=== PATIENT | female | born 1965 | race Caucasian/White ===

== ENCOUNTER → 2023-01-23 09:29 | Outpatient (CLI) | payer OTHER, SELFPAY ==
--- NOTE | 2023-01-23 | DI.US.S_ITS ---
PROCEDURE: US INJECT OR DRAIN JOINT INDICATIONS: RIGHT SHOULDER FLUID COLLECTION TECHNIQUE: The indications, alternatives, benefits, risks, and complications of the procedure were explained to the patient. Written informed consent was obtained and placed in the chart. The patient was placed in an appropriate position on the fluoroscopy table, and a site was chosen for percutaneous access under ultrasound guidance. Local anesthetic was administered using a 1% lidocaine solution. A hypodermic needle was then used to access the fluid collection adjacent to the right shoulder joint. Appropriate position of the needle tip was confirmed by real time ultrasound imaging, followed by aspiration. The needle was then withdrawn, and a bandage applied to the puncture site. COMPARISON: None. FINDINGS: Joint aspirated: Right shoulder Fluid collected: 15 cc of serosanguineous fluid Complications: None. IMPRESSION: Successful ultrasound guided aspiration of a fluid collection adjacent to the right shoulder. Dictated by: George Vargas M.D. on 01/23/2023 at 12:59 Approved by: George Vargas M.D. on 01/23/2023 at 13:01
--- NOTE | 2023-01-23 | DI.CT.S_ITS ---
PROCEDURE: CT UE RT WO CON INDICATIONS: Presence of right artificial shoulder joint TECHNIQUE: Noncontrast 1-1.5 mm thick sections acquired from the acromioclavicular joint to the inferior scapula, with coronal and sagittal reformatting. COMPARISON: [facility], CR, XR SHOULDER 2+ VIEWS RIGHT, 12/21/2022, 11:42. FINDINGS: Image quality: Excellent. Bones: Patient is status post reverse right shoulder arthroplasty. Shoulder alignment is anatomic. Surgical hardware are in their expected positions. No gross hardware loosening or failure is seen. Increased radiolucency involving glenoid and proximal humeral shaft surrounding the surgical prosthesis concerning for osteolysis. There is posterior lateral cortical thickening involving anterolateral cortical shaft with focal cortical defect involving anterior and slightly medial aspect of mid humeral shaft adjacent to distal portion of the humeral prosthesis best seen on series 4, image 135 and series 7 image 42 with fairly well corticated margin. No acute fracture or dislocation. No suspicious bony lesions. Expected postsurgical widening of acromioclavicular joint is seen. Soft tissues: There is suggestion of moderate amount of subacromial subdeltoid bursal fluid. No gross full-thickness rotator cuff tendon rupture. No significant rotator cuff muscle atrophy is seen on sagittal images. No abnormal soft tissue calcifications or calcified intra-articular loose bodies. The visualized right lung field is clear. IMPRESSION: 1. Prior right shoulder reverse arthroplasty with fairly anatomic right shoulder alignment. No gross hardware loosening or failure. Significant increased radiolucency involving glenoid and proximal humeral shaft surrounding the surgical prosthesis concerning for osteolysis. 2. Finding is suggestive of subacute to chronic periprosthetic fracture involving anterior aspect of mid humeral shaft adjacent to humeral prosthesis as described above. No acute shoulder fracture or dislocation. Expected postsurgical widening of acromioclavicular joint. 3. Moderate subacromial subdeltoid bursal fluid, no gross loose bodies. No full-thickness rotator cuff tendon rupture or rotator cuff muscle atrophy. No abnormal soft tissue calcifications. Dictated by: Cain John M.D. on 01/23/2023 at 16:19 Approved by: Cain John M.D. on 01/23/2023 at 16:39
[2023-01-23 12:06] LABS: Body Fluid Red Blood Cells 16431 /uL; Body Fluid Tot Nucleated Cells 786 /uL
[2023-01-23 13:55] LABS: Body Fluid Appearance HAZY; Body Fluid Clotted? NO CLOTS PRESENT; Body Fluid Color ORANGE; Eosinophils Body Fluid 0 %; Mononuclear WBC Body Fluid 94 %; Other Cells Body Fluid 0 %; Polynuclear WBC Body Fluid 6 %
== END ==
LOC: CT 09:32
PROVIDERS: PCP Nurse Practitioner Family; Referring Provider Orthopaedic Surgery; Visit Provider Orthopaedic Surgery
DX: Z96.611 Presence of right artificial shoulder joint (principal); Z09 Encounter for follow-up examination after completed treatment for conditions other than malignant neoplasm
CPT/HCPCS: 20611; 73200; 87070; 87075; 87205; 89051

== ENCOUNTER → 2023-07-18 15:31 | Outpatient (CLI) | payer OTHER, SELFPAY ==
[2023-07-18 17:52] LABS: Add Manual Diff / Slide Review NO; Basophils Absolute Auto 0 /uL (0-100); Basophils Percent Auto 0.6 % (0-2); Eosinophils Absolute Auto 200 /uL (0-450); Eosinophils Percent Auto 2.1 % (2-4); Hematocrit 34.5 % (36-46); Hemoglobin 11.6 g/dL (12.0-16.0); Lymphocytes Absolute Auto 2700 /uL (1100-4500); Lymphocytes Percent Auto 34.8 % (25-40); Mean Corpuscular HGB Conc 33.7 % (30-36); Mean Corpuscular Hemoglobin 30.8 PG (26-34); Mean Corpuscular Volume 91.4 fL (80-100); Monocytes Absolute Auto 500 /uL (0-900); Monocytes Percent Auto 6.3 % (3-14); Neutrophils Absolute Auto 4400 /uL (1500-7000); Neutrophils Percent Auto 56.2 % (50-75); Platelet Count 354 X10^3/uL (150-400); Red Blood Cell Count 3.78 X10^6/uL (4.0-5.2); Red Cell Distribution Width 13.4 % (11.6-14.8); White Blood Cell Count 7.7 X10^3/uL (4.5-11.0)
[2023-07-18 18:20] LABS: BUN Creatinine Ratio 19.6 (6-22); Blood Urea Nitrogen 11 mg/dL (7-17); Calcium 8.9 mg/dL (8.4-10.2); Carbon Dioxide 31 mmol/L (22-32); Chloride 103 mmol/L (98-107); Estimated Glomerular Filt Rate > 60 mL/min (>60); Glucose 102 mg/dL (70-100); HEMOLYSIS < 15 (0-50); Potassium 3.7 mmol/L (3.4-5.1); Sodium 135 mmol/L (137-145)
== END ==
PROVIDERS: PCP Nurse Practitioner Family; Referring Provider Orthopaedic Surgery; Visit Provider Orthopaedic Surgery
DX: Z01.818 Encounter for other preprocedural examination (principal); Z01.812 Encounter for preprocedural laboratory examination; N39.0 Urinary tract infection, site not specified
CPT/HCPCS: 36415; 80048; 85025; 93005

== ENCOUNTER 2023-07-26 06:41 | Inpatient (IN) | payer OTHER, SELFPAY ==
[2023-07-17 13:46] VITALS: BMI 35.6
[2023-07-26] VITALS (8 sets, daily range): BP systolic 99–133; BP diastolic 55–89; PULSE 82–97; RESP 12–18; TEMP 36.1–36.9; O2SAT 94–100; BMI 35.6; BMI 37.1
--- NOTE | 2023-07-26 | DI.RAD.S_ITS ---
PROCEDURE: XR SHOULDER RT 1V INDICATIONS: POST OP SHOULDER TECHNIQUE: 1 views of the shoulder were acquired. COMPARISON: [facility], , XR SHOULDER RT MIN 2V, 07/26/2023, 10:51. FINDINGS: Bones: Single view of the right shoulder demonstrates postoperative changes of right total shoulder arthroplasty. No evidence for acute hardware complication. Postsurgical alignment appears anatomic on this one view. Soft tissues: No suspicious soft tissue calcifications. IMPRESSION: Status post right shoulder arthroplasty. Dictated by: Jae Duong M.D. on 07/26/2023 at 16:04 Approved by: Jae Duong M.D. on 07/26/2023 at 16:05
--- NOTE | 2023-07-26 06:00 | DI.RAD.S_ITS ---
PROCEDURE: XR SHOULDER RT MIN 2V INDICATIONS: right shoulder arthroplasty TECHNIQUE: Multiple intraoperative fluoroscopic views of the shoulder were acquired. COMPARISON: None. FINDINGS: Bones: Multiple intraoperative fluoroscopic views demonstrate right shoulder arthroplasty. IMPRESSION: Intraoperative fluoroscopic views of the right shoulder arthroplasty. Dictated by: Kaycee Gonzalez M.D. on 07/26/2023 at 15:44 Approved by: Kaycee Gonzalez M.D. on 07/26/2023 at 15:45
[2023-07-26] MEDS: ACETAMINOPHEN 325 MG TABLET 975 MG PO (07:26)
[2023-07-26] MEDS: SCOPOLAMINE 1 PATCH TOP (07:26)
[2023-07-26] MEDS: LACTATED RINGERS 1,000 ML 42 ML IV ×3 (07:33→13:15)
--- NOTE | 2023-07-26 07:43 | PM.PREOP ---
Pre-operative Note Interval Note History & Physical reviewed/Exam performed by Physician: Yes Changes to H&P: No
[2023-07-26] MEDS: ALBUTEROL/IPRATROPIUM 3 ML AMPUL INH (07:54)
[2023-07-26] MEDS: CEFAZOLIN 2 GM/100 ML PREMIX 100 ML IV ×3 (08:18→21:25)
[2023-07-26] MEDS: TRANEXAMIC ACID 1,000 MG VIAL 1000 MG INJ ×2 (08:25→11:51)
--- NOTE | 2023-07-26 09:14 | SUR.OPER ---
Beach chair with Buddy/Dayanna shoulder positioner. Lower body on padded OR bed. Head in foam padded head cradle, secured with straps. Non-operative arm secured <90 degrees abduction. Pillow under knees. Safety belt at thigh. Cloth tape over blanket over lower legs.
[2023-07-26] MEDS: BUPIVACAINE 0.5% (PF) 30 ML, EPINEPHrine 0.15 MG INJ (09:53)
[2023-07-26] MEDS: OXYCODONE IR 5 MG TABLET PO ×2 (15:21→18:39)
--- NOTE | 2023-07-26 15:32 | P.OP_ITS ---
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 She has failed conservative management and a full workup has been performed. Risks and benefits of surgery were discussed again including the risk of infection, damage to internal structures, bleeding, nerve injury, instability, need for rev ision surgery, blood clots, anesthesia and . No guarantees were made regarding outcomes. Patient expressed understanding and accepted these risks and wished to go forward with surgery and consent was signed. Surgeon: Talib Aparicio Contact Center Team Lead: Venus Kunz Anesthesia Type: General Operative Notes Findings: Detritic synovitis, severe bone loss of the glenoid, loose glenoid screws, severe poly wear Closure Type: primary Specimen(s): none sent Prosthetic devices, grafts, tissues, transplants, or devices: Tornier implants Base plate: standard 25 mm, Glenosphere: 36+ 3 lateralized glenosphere Cup: 36+ 4 cup Poly: 36+ 4 constrained Estimated Blood Loss (mL): 100 Blood products transfused: none Procedure in detail: Patient was seen in the preoperative holding unit. The correct right shoulder was identified and marked with my initials. Again we discussed the risks and benefits of surgery and they wished to go forward with surgery. The patient was brought back to the operating room and placed supine on the operating table. Smooth endotracheal intubation was performed by anesthesia. All prominences were padded and they were placed into the beach chair position. Intravenous antibiotics were given. The right shoulder was then prepped with the standard sterile preparation and draping. A time-out was then performed in my initials were again identified on the correct shoulder. 1 g of IV tranexamic acid was given. A standard deltopectoral incision was made. Skin flaps were made. The cephalic vein was identified and retracted laterally. This was protected throughout the remainder of the case. Sharp dissection was made along the deltoid, subacromial and subcoracoid space to release adhesions. The conjoined tendon was identified and the axillary nerve was palpated and continuous using the tug test. It was protected throughout the remainder of the case. A brown retractor was placed underneath the deltoid muscle and a darach retractor underneath the conjoint tendon. The subscapularis muscle was ntoed to be insufficient. The biceps tendon was identified in the bicipital groove. This was released from its sheath, and taken from its origin on the glenoid and tied into the pectoralis tendon for a solid tenodesis. The coracohumeral ligament was released at the base of the coracoid. The shoulder was then dislocated. The implant was encountered at this time. The rotator cuff was noted to be insufficient. The previous implant tray and poly was then removed with a tuning fork device. There was some proximal humerus bone loss although not severe. It was noted at this time that the poly had significant inferior wear. Multiple cultures were taken and sent. Attention was then turned to the glenoid. After retracting the humeral head posteriorly a circumferential release was performed of the capsule with protection of the axillary nerve. The previous glenosphere was then removed followed by the peripheral screws, central screw and base plate. More cultures were taken and sent. Thorough debridement of the glenoid was then performed demonstrating significant synovitis throughout as well as bone loss centrally and inferior. After adequate debridement was performed and good visualization of the glenoid was obtained, we began by fashioning a femoral head allograft. Using measurements taken in the glenoid, a graft was made to fit the socket. DBM was used to fill in the cracks and it was provisionally pinned into place. Using a standard 25 base plate, it was also pinned through the inferior hole. The central post hole was then drilled followed by a boss. A 25 base plate with long post was then malleted into place. The superior and inferior nonlocking holes were then drilled with good compression obtained by the screws. Turning back to the humerus, thorough debridement around the stem was performed, a new tray was then selected and trialed with a 36+ 4 concentric poly. The arm was taken through range of motion and this was felt to be stable. The trial was then removed and a dilute Betadine wash was then performed with 1 L of sterile saline. The final implant was then impacted into the humerus. The shoulder was then reduced and again brought through range of motion and was felt to be stable. The deltopectoral interval was then closed with #2 Ethibond. The skin was closed with 2-0 vicryl and 3-0 Monocryl followed by Aquacel dressing. Patient was awoken from anesthesia and brought back to the postoperative recovery unit without issue. They were placed into a sling. Assisting participation: This operation could not have been safely performed (without compromising the technical results or length of the procedure) without the assistance of a skilled surgical services asst. The surgical services asst was medically necessary for proper positioning, retraction and manipulation of instruments, proper exposure, graft prep, and manipulation of tissue. Complications: none Post-operative Condition: stable Disposition: PACU Plan for aftercare: Postoperative instructions: Sling to remain on for 6 weeks. No external rotation past neutral for 6 weeks. Okay for the sling to come off for shower. Okay to shower over the Aquacel dressing. If any water gets underneath the dressing, remove the dressing. First postoperative visit in 2 weeks.
--- NOTE | 2023-07-26 16:27 | PC.NURSE ---
Pt arrived from PACU at 1312 A/O Aquacell dsg to right shoulder CDI Med x 1 w/Oxy at 1515 w/ good results. IVF infusing as per orders Satisfactory post op course. Call light w/in reach, bed alarm on for pt safety. 'Continue w/plan of care.
[2023-07-26] MEDS: ALBUTEROL 2.5 MG/3 ML NEB (ADULT) INH (20:23)
[2023-07-26] MEDS: PROPRANOLOL 10 MG TABLET 20 MG PO (21:25)
[2023-07-26] MEDS: GABAPENTIN 100 MG CAPSULE 200 MG PO (21:25)
[2023-07-26] MEDS: DOCUSATE 100 MG CAPSULE PO (21:25)
[2023-07-26] MEDS: ACETAMINOPHEN 325 MG TABLET 650 MG PO (21:25)
[2023-07-26] MEDS: lamoTRIgine 100 MG TABLET 25 MG PO (21:26)
[2023-07-26] MEDS: SENNOSIDES 8.6 MG TABLET 17.2 MG PO (21:26)
[2023-07-27] MEDS: SODIUM CHLORIDE 0.9% FLUSH 10 ML IV ×2 (00:06→09:09)
[2023-07-27] MEDS: CEFAZOLIN 2 GM/100 ML PREMIX 100 ML IV (04:20)
[2023-07-27] MEDS: ACETAMINOPHEN 325 MG TABLET 650 MG PO ×3 (06:32→19:51)
[2023-07-27] MEDS: PANTOPRAZOLE DR 20 MG TABLET PO (06:32)
[2023-07-27] MEDS: OXYCODONE IR 5 MG TABLET PO ×4 (06:32→17:51)
--- NOTE | 2023-07-27 06:52 | P.DS_ITS ---
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 She has failed conservative management and a full workup has been performed. Risks and benefits of surgery were discussed again including the risk of infection, damage to internal structures, bleeding, nerve injury, instability, need for revision surgery, blood clots, anesthesia and . No guarantees were made regarding outcomes. Patient expressed understanding and accepted these risks and wished to go forward with surgery and consent was signed. Surgeon: Talib Aparicio Generating Plant Superintendent: Venus Kunz Anesthesia Type: General Operative Notes Findings: Detritic synovitis, severe bone loss of the glenoid, loose glenoid screws, severe poly wear Closure Type: primary Specimen(s): none sent Prosthetic devices, grafts, tissues, transplants, or devices: Tornier implants Base plate: standard 25 mm, Glenosphere: 36+ 3 lateralized glenosphere Cup: 36+ 4 cup Poly: 36+ 4 constrained Estimated Blood Loss (mL): 100 Blood products transfused: none Discharge Providers Provider Date of admission: 07/26/23 06:41 Discharge Date: 07/27/23 Primary care physician: DEMARCO Mendoza Consults: 07/26/23 13:14 Consult to Discharge Planning Routine Comment: Consult to Physical Therapy Evaluate & Treat Comment: See op note for restrictions Physician Instructions: Evaluate and Treat Discharge provider: Venus Kunz PA-C Summary Hospital Course Discharge Diagnosis: 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 On the morning of POD# 1, she was feeling well and wanted to go home. She was eating and voiding without difficulty and her pain was well-controlled with oral medication. 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 Sensation to light touch intact throughout RUE. Sling well-placed. Objective Labs Labs: Laboratory Results - last 24 hr 07/26/23 06:55 Blood Type A Positive Antibody Screen Negative [facility] Medical History (Updated 07/17/23 @ 14:41 by Brianna Bob RN) History of COVID-19 Depression Anxiety PTSD (post-traumatic stress disorder) ADHD Bipolar 2 disorder Fragile skin Easy bruisability History of revision of total replacement of right knee joint Acid reflux HTN (hypertension) Asthma Hearing impaired RLS (restless legs syndrome) TBI (traumatic brain injury) (~1992) Neuropathy Anesthesia complication Surgical History (Updated 07/17/23 @ 14:32 by Brianna Bob RN) History of repair of left rotator cuff Hx of shoulder surgery History of reverse total replacement of right shoulder joint Hx of thumb surgery Hx of arthroscopy of left knee History of arthroscopy of right knee History of surgery History of total left knee replacement History of total right knee replacement Hx of tonsillectomy Hx of dilation and curettage Hx of cholecystectomy Social History household members: spouse and children Smoking Status: Current every day smoker alcohol intake: current Discharge Assessment & Plan Assessment and Plan Assessment: Revision right reverse total shoulder arthroplasty glenoid and humeral side Plan of Treatment: Discharge home, outpt PT, pt has home pain meds, f/u in 2 weeks as scheduled. ASA 81mg BID for VTE prophylaxis. Discharge Plan Discharge Plan Patient Disposition: Home Provider Discharge Comment: No ibuprofen or other NSAIDs - Tylenol and oxycodone for pain control. Take aspirin 81mg BID to prevent blood clots. Bone growth stimulator ordered through our office. Discharge orders & Medications Prescriptions: Continued albuterol sulfate 90 mcg/actuation Hfa Aerosol Inhaler 2 puff INHALATION BID propranolol 20 mg Tablet 20 mg PO BID gabapentin 100 mg Capsule 200 mg PO BID desvenlafaxine 100 mg Tablet Extended Release 24 Hr 100 mg PO DAILY lamotrigine 200 mg Tablet 200 mg PO DAILY lamotrigine 25 mg Tablet 25 mg PO BEDTIME guanfacine 1 mg Tablet 1 - 2 mg PO DAILY omeprazole 20 mg Tablet,Delayed Release (Dr/Ec) 20 mg PO DAILY Follow up/Referrals: Marika Ng ARNP [Primary Care Provider] - Talib Aparicio MD [Physician] - 08/06/23 1:00 pm (Follow up with Betzaida Rojas PA-C, at [facility] office in [place].) Diet/Activity/Treatments Diet: Diet as Tolerated Activity: Sling at all times; may have off for hygiene. No weightbearing to right hand. No external rotation of shoulder past neutral. Cold/Heat Therapy: Ice to shoulder as needed for pain. Skin/Wound/Dressing Care Report to your healthcare provider any signs of infection, such as:: chills, fever, night sweats, unusual drainage and unusual redness Dressing: May shower. Keep dressing in place until follow up in office. Call the office if the dressing becomes saturated inside. Visit Report/Discharge Packet Instructions: DI for Prescription Opioid Use, DI for Shoulder Replacement Stand Alone Forms: Patient Portal/API, Stroke Signs & Symptoms, Surgery Discharge Discharge Data Primary Care Provider: Marika Ng VTE Deep Vein Thrombosis/Pulmonary Embolism Present on Admission: No
[2023-07-27 07:09] LABS: Hematocrit 31.5 % (36-46); Hemoglobin 10.6 g/dL (12.0-16.0)
[2023-07-27 08:00] VITALS: BP 112/55; PULSE 66; RESP 18; TEMP 36.4; O2SAT 99
[2023-07-27 08:21] VITALS: PULSE 70; RESP 18; O2SAT 98
[2023-07-27] MEDS: ALBUTEROL 2.5 MG/3 ML NEB (ADULT) INH ×2 (08:21→19:31)
[2023-07-27] MEDS: GABAPENTIN 100 MG CAPSULE 200 MG PO ×2 (09:08→20:03)
[2023-07-27] MEDS: ENOXAPARIN 40 MG/0.4 ML SYRINGE SUBCUT (09:08)
[2023-07-27] MEDS: lamoTRIgine 100 MG TABLET 200 MG PO (09:13)
--- NOTE | 2023-07-27 10:00 | PT.IIE ---
Current Diagnoses Broken internal joint prosthesis, unspecified site, initial encounter (07/26/23) Presence of right artificial shoulder joint (07/26/23) Surgery Performed Operation Date: 07/26/23 07:45 Actual Procedures p Reverse Total Shoulder Arthroplasty - Revision with biceps tenodesis, with allograft(Right) - Talib Aparicio MD Surgical History (Last Updated 07/17/23 @ 14:32 by Brianna Bob, RN) History of arthroscopy of right knee History of repair of left rotator cuff History of reverse total replacement of right shoulder joint History of surgery History of total left knee replacement History of total right knee replacement Hx of arthroscopy of left knee Hx of cholecystectomy Hx of dilation and curettage Hx of shoulder surgery Hx of thumb surgery Hx of tonsillectomy Medical History (Last Updated 07/17/23 @ 14:41 by Brianna Bob RN) Acid reflux ADHD Anesthesia complication Anxiety Asthma Bipolar 2 disorder Depression Easy bruisability Fragile skin Hearing impaired History of COVID-19 History of revision of total replacement of right knee joint HTN (hypertension) Neuropathy PTSD (post-traumatic stress disorder) RLS (restless legs syndrome) TBI (traumatic brain injury) (~1992) Physical Therapy Inpatient Evaluation/Re-Eval M1 PT/OT-IP Prior Functional Status Start: 07/27/23 09:42 Freq: NEEDED Status: Active Protocol: Document 07/27/23 10:00 AB (Rec: 07/27/23 13:16 [id number]) Medical Review Prior Functional Status Medical History Reviewed Yes Communication able to make needs known Mobility and Gait pt stated that she was independent with all mobilities and ambulation without AD Social History Household Members spouse,children Living Arrangements Mobile home Number of Floors (Floors) One Floor Number of Stairs To Enter/Railing? has 2 steps L rail ascending to enter the house Home Environment Standard Height Toilet,Walk in Shower,Built-In Shower Seat Home Equipment Hand Held Shower,Grab Bars In Shower M2 PT-IP Current Condition Start: 07/27/23 09:42 Freq: NEEDED Status: Active Protocol: Document 07/27/23 10:00 AB (Rec: 07/27/23 13:16 [id number]) Physical Therapy Current Condition Current Condition Evaluation Date 07/27/23 Treatment Diagnosis s/p revision R TSA reverse; difficulty in walking Onset Date 07/26/23 M3 PT-IP Subjective Start: 07/27/23 09:42 Freq: NEEDED Status: Active Protocol: Document 07/27/23 10:00 AB (Rec: 07/27/23 13:16 AB [id number]) Subjective Physical Therapy Visit Type Type Initial Evaluation Visit Start Time 10:00 Visit Stop Time 10:40 Number of COMMERCIAL JOURNEYMAN ELECTRICIAN Visits 0 Physical Therapy Visit Comments Patient Comments agreeable to do PT Therapy Pain Assessment Pain Present Pain Present Denied Pain M4 PT-IP Mobility and Gait Start: 07/27/23 09:42 Freq: NEEDED Status: Active Protocol: Document 07/27/23 10:00 AB (Rec: 07/27/23 13:16 AB [id number]) PT-Bed Mobility Assessment Supine to Sit Supine to Sit Standby Assistance Sit to Supine Sit to Supine Standby Assistance PT-Transfer Assessment Comments Mobility Comments pt supine in bed and agreeable to do PT. pt has sling on but does not have waist part on. pt stated that the doctor told her that PT will adjust and put on the sling. obtained PLOF and home set up from pt. pt already took a shower by herself. pt unaware of her shoulder precautions. post-op handout provided and reviewed. educated pt regarding shoulder precautions and is NWB on RUE. also educated on pendulum exercises , elbow/wrist/hand/finger exercises BP in supine: 90/43. pt completed supine to sit SBA. BP in sittin/51. c/o lightheadedness. PT assisted pt with sling management. doff sling. pt completed elbow/wrist/hand/finger exercises in sitting. pt accidentally move RUE next to PT's coat and IV dislodged a little. PT was about to ask for nurse to manage but pt pulled out her IV line. applied pressure to manage bleeding and nurse came in to address. fitted and adjusted sling on pt. pt then stated that she is getting more lightheaded. BP checked: 93/53. pt stated that she has to lie back in bed and completed sit to supine SBA. positioned pt in bed. call light and table placed within reach. BP checked: 102/57. pt continues to be lightheaded. nurse aware. PT-Balance Assessment Sitting Balance and Reactions Static Sitting Balance Ability Normal Dynamic Sitting Balance Ability Good M5 PT-IP Objective Assessments Start: 07/27/23 09:42 Freq: NEEDED Status: Active Protocol: Document 07/27/23 10:00 AB (Rec: 07/27/23 13:16 AB [id number]) Orientation Orientation/Cognition Level of Alertness Alert Orientation Name Language Function Ability Hard of Hearing Safety Awareness Decreased Safety Awareness Memory Description Short Term Impaired Gross Range of Motion Lower Extremity ROM Assessment Within Functional Limits Strength Lower Extremity Strength Assessment Within Functional Limits Muscle Tone Muscle Tone WNL Yes M6 PT-IP Treatment Start: 07/27/23 09:42 Freq: NEEDED Status: Active Protocol: Document 07/27/23 10:00 AB (Rec: 07/27/23 13:16 AB [id number]) Physical Therapy Treatment Exercises Exercises Elbow Flexion/Extension,Wrist ROM,Hand ROM Education Education Provided Precautions,Weight Bearing Status,Post-Op Packet,Safety Brace Education [place],Patient M7 PT-IP Assessment and Plan Start: 07/27/23 09:42 Freq: NEEDED Status: Active Protocol: Document 07/27/23 10:00 AB (Rec: 07/27/23 13:16 AB [id number]) PT Summary Assessment and Plan Potential Rehabilitation Potential Fair Status of Condition at Evaluation Evolving Summary Impairments Pain,ROM,Strength,Balance, Coordination,Sensation,Tone, Cognition,Bed Mobility, Transfers,Gait,Activity Tolerance Assessment Summary pt is a 58 y/o F s/p revision R TSA reverse POD 1. pt has R shoulder precautions and is NWB. pt unable to tolerate much activity this morning with c/o lightheadedness and with low BP: 90/43. Caregiver training set up this afternoon at 130 pm. will continue to assess progress. Goals Bed Mobility Goal Independent Transfer Goal Independent Gait Goal Independent Gait Distance 200 Other Goals up/down 2 steps L rail ascending mod I Days to Meet Goals 5 Frequency of Treatment Frequency Of Treatment Twice a Day Treatment Plan Physical Therapy Treatment Plan Bed Mobility Training,Transfer Training,Gait Training, Therapeutic Exercise,Balance Retraining,Post Op Education, Discharge Planning,Hot or Cold Pack,Neuromuscular Re-ed, Coordination Retraining,Manual Therapy Other Recommendations and Next Treatment caregiver trainin/7 @ 130 Focus pm Precautions Shoulder Precautions Sling,PROM,Internal Rotation to Body,No External Rotation, No Abduction,Forward Flexion to 90 degrees,Pendulums Weight Bearing Status Weight Bearing Status Non-Weight Bearing Allowed Weight Bearing Amount (enter % RUE NWB or #) (%) Recommendations To Nursing Amount of Assist Needed 1 Person Assist Discharge Recommendations PT Discharge Recommendations Home with Assistance, Outpatient PT Transportation Needs at Discharge Private Vehicle
--- NOTE | 2023-07-27 10:00 | PT.IIE ---
Current Diagnoses Broken internal joint prosthesis, unspecified site, initial encounter (07/26/23) Presence of right artificial shoulder joint (07/26/23) Surgery Performed Operation Date: 07/26/23 07:45 Actual Procedures p Reverse Total Shoulder Arthroplasty - Revision with biceps tenodesis, with allograft(Right) - Talib Aparicio MD Surgical History (Last Updated 07/17/23 @ 14:32 by Brianna Bob, RN) History of arthroscopy of right knee History of repair of left rotator cuff History of reverse total replacement of right shoulder joint History of surgery History of total left knee replacement History of total right knee replacement Hx of arthroscopy of left knee Hx of cholecystectomy Hx of dilation and curettage Hx of shoulder surgery Hx of thumb surgery Hx of tonsillectomy Medical History (Last Updated 07/17/23 @ 14:41 by Brianna Bob RN) Acid reflux ADHD Anesthesia complication Anxiety Asthma Bipolar 2 disorder Depression Easy bruisability Fragile skin Hearing impaired History of COVID-19 History of revision of total replacement of right knee joint HTN (hypertension) Neuropathy PTSD (post-traumatic stress disorder) RLS (restless legs syndrome) TBI (traumatic brain injury) (~1992) Physical Therapy Inpatient Evaluation/Re-Eval M1 PT/OT-IP Prior Functional Status Start: 07/27/23 09:42 Freq: NEEDED Status: Active Protocol: Document 07/27/23 10:00 AB (Rec: 07/27/23 13:16 [id number]) Medical Review Prior Functional Status Medical History Reviewed Yes Communication able to make needs known Mobility and Gait pt stated that she was independent with all mobilities and ambulation without AD Social History Household Members spouse,children Living Arrangements Mobile home Number of Floors (Floors) One Floor Number of Stairs To Enter/Railing? has 2 steps L rail ascending to enter the house Home Environment Standard Height Toilet,Walk in Shower,Built-In Shower Seat Home Equipment Hand Held Shower,Grab Bars In Shower M2 PT-IP Current Condition Start: 07/27/23 09:42 Freq: NEEDED Status: Active Protocol: Document 07/27/23 10:00 AB (Rec: 07/27/23 13:16 [id number]) Physical Therapy Current Condition Current Condition Evaluation Date 07/27/23 Treatment Diagnosis s/p revision R TSA reverse; difficulty in walking Onset Date 07/26/23 M3 PT-IP Subjective Start: 07/27/23 09:42 Freq: NEEDED Status: Active Protocol: Document 07/27/23 10:00 AB (Rec: 07/27/23 13:16 AB [id number]) Subjective Physical Therapy Visit Type Type Initial Evaluation Visit Start Time 10:00 Visit Stop Time 10:40 Number of FINANCING ANALYST Visits 0 Physical Therapy Visit Comments Patient Comments agreeable to do PT Therapy Pain Assessment Pain Present Pain Present Denied Pain M4 PT-IP Mobility and Gait Start: 07/27/23 09:42 Freq: NEEDED Status: Active Protocol: Document 07/27/23 10:00 AB (Rec: 07/27/23 13:16 AB [id number]) PT-Bed Mobility Assessment Supine to Sit Supine to Sit Standby Assistance Sit to Supine Sit to Supine Standby Assistance PT-Transfer Assessment Comments Mobility Comments pt supine in bed and agreeable to do PT. pt has sling on but does not have waist part on. pt stated that the doctor told her that PT will adjust and put on the sling. obtained PLOF and home set up from pt. pt already took a shower by herself. pt unaware of her shoulder precautions. post-op handout provided and reviewed. educated pt regarding shoulder precautions and is NWB on RUE. also educated on pendulum exercises , elbow/wrist/hand/finger exercises BP in supine: 90/43. pt completed supine to sit SBA. BP in sittin/51. c/o lightheadedness. PT assisted pt with sling management. doff sling. pt completed elbow/wrist/hand/finger exercises in sitting. pt accidentally move RUE next to PT's coat and IV dislodged a little. PT was about to ask for nurse to manage but pt pulled out her IV line. applied pressure to manage bleeding and nurse came in to address. fitted and adjusted sling on pt. pt then stated that she is getting more lightheaded. BP checked: 93/53. pt stated that she has to lie back in bed and completed sit to supine SBA. positioned pt in bed. call light and table placed within reach. BP checked: 102/57. pt continues to be lightheaded. nurse aware. PT-Balance Assessment Sitting Balance and Reactions Static Sitting Balance Ability Normal Dynamic Sitting Balance Ability Good M5 PT-IP Objective Assessments Start: 07/27/23 09:42 Freq: NEEDED Status: Active Protocol: Document 07/27/23 10:00 AB (Rec: 07/27/23 13:16 AB [id number]) Orientation Orientation/Cognition Level of Alertness Alert Orientation Name Language Function Ability Hard of Hearing Safety Awareness Decreased Safety Awareness Memory Description Short Term Impaired Gross Range of Motion Lower Extremity ROM Assessment Within Functional Limits Strength Lower Extremity Strength Assessment Within Functional Limits Muscle Tone Muscle Tone WNL Yes M6 PT-IP Treatment Start: 07/27/23 09:42 Freq: NEEDED Status: Active Protocol: Document 07/27/23 10:00 AB (Rec: 07/27/23 13:16 AB [id number]) Physical Therapy Treatment Exercises Exercises Elbow Flexion/Extension,Wrist ROM,Hand ROM Education Education Provided Precautions,Weight Bearing Status,Post-Op Packet,Safety Brace Education [place],Patient M7 PT-IP Assessment and Plan Start: 07/27/23 09:42 Freq: NEEDED Status: Active Protocol: Document 07/27/23 10:00 AB (Rec: 07/27/23 13:16 AB [id number]) PT Summary Assessment and Plan Potential Rehabilitation Potential Fair Status of Condition at Evaluation Evolving Summary Impairments Pain,ROM,Strength,Balance, Coordination,Sensation,Tone, Cognition,Bed Mobility, Transfers,Gait,Activity Tolerance Assessment Summary pt is a 58 y/o F s/p revision R TSA reverse POD 1. pt has R shoulder precautions and is NWB. pt unable to tolerate much activity this morning with c/o lightheadedness and with low BP: 90/43. Caregiver training set up this afternoon at 130 pm. will continue to assess progress. Goals Bed Mobility Goal Independent Transfer Goal Independent Gait Goal Independent Gait Distance 200 Other Goals up/down 2 steps L rail ascending mod I Days to Meet Goals 5 Treatment Plan Other Recommendations and Next Treatment caregiver trainin/7 @ 130 Focus pm Precautions Shoulder Precautions Sling,PROM,Internal Rotation to Body,No External Rotation, No Abduction,Forward Flexion to 90 degrees,Pendulums Weight Bearing Status Weight Bearing Status Non-Weight Bearing Allowed Weight Bearing Amount (enter % RUE NWB or #) (%) Recommendations To Nursing Amount of Assist Needed 1 Person Assist Discharge Recommendations PT Discharge Recommendations Home with Assistance, Outpatient PT Transportation Needs at Discharge Private Vehicle
[2023-07-27] MEDS: LORazepam 0.5 MG TABLET PO (11:01)
--- NOTE | 2023-07-27 11:59 | CM.DANOTE ---
Addendum entered by SUSAN Mascorro 07/27/23 15:16: Per pt's RN, pt's blood pressure continues to plummet and discharge orders have been cancelled for today. DCP delivered pamphlets and information regarding HH. Pt to review in case she is now requesting for it to be ordered during admission. Plan: Pt will stay over night for continued monitoring, anticipating dc with family to transport when medically stable. JASMIN Purvis Original Note: DCP Assessment Note: Pt is a 58yo female, resident of [place], is POD1 of a R TSA. Pt lives in a mobile home with her spouse, Mele, and son, Collin. Pt's Primary Care Provider is DEMARCO Mendoza and insurance is [employer]. Reviewed chart and team rounds for pt's medical status and initial discharge needs. DCP met w/patient at bedside; introduced self and role. Present in the room is pt's adult son, Collin. Pt was found in bed, alert and oriented, cooperative with assessment. Pt was fully dressed and seemed prepared to discharge. Pt confirmed living situation and good support in family. Pt expressed she was preparing to go home when her blood pressure dropped and was starting to feel dizzy. Pt is still being monitored for her BP before being medically cleared for dc. DCP discussed physical therapy, pt stated she is working on confirming OP PT. Pt explained she is open to home health but is not requesting a referral at this time. Pt requested for more information of agencies, DCP discussed that pt will need this ordered by PCP or Ortho Provider. Pt verbalized understanding. Pt denied any other dc needs at this time. Plan: Discharge order was in for pt with plans to dc home with family to transport. Pt now awaiting medical clearance after low BP and dizziness this morning. CM team will plan to follow clinical course for pending dc needs. JASMIN Purvis Discharge Planning/Care Management CM Discharge Assessment Start: 07/27/23 11:56 Freq: Status: Active Protocol: Document 07/27/23 11:56 MW (Rec: 07/27/23 11:59 MW [id number]) Discharge Planning Assessment Assigned Director Internal Audit SUSAN Harkins DPOA/Assigned Designee Name Mele, Spouse Contact Information [phone] Advance Directives? No History Provided By Patient,Family Member,Medical Record Expected Length of Stay 1 Has Patient been admitted in last 30 No days? Prior Living Arrangements Mobile home Household Members spouse,children Comment Pt lives with her spouse and her adult child, Collin. Type of transporation used prior to Drives own vehicle admit Independent with ADL's Yes Is patient alert and oriented? Yes Caregiver for Another No Patient/Family Preference OP PT Therapy,OP OT Therapy Comment Pt open to Home Health but did not want referral at this time. [facility] provided pamphlets for [facility] who accept pt's [employer] insurance. DCP explained she would need to request for this order from PCP or Ortho Provider. Barriers to Discharge Yes Comment At time of assessment, pt was endorsing dizziness and low BP . RN is aware and monitoring pt. Discharge Plan Home Transportation Arrangement Pt to transport with sonCollin , home. Referrals Initiated None needed Whiteboard Updated in Patient Room with Yes name and ext. # of Director Internal Audit Comment [phone] Please Provide Date Initial DC 07/27/23 Assessment Was Performed Next Review Type Continued Stay Review
--- NOTE | 2023-07-27 13:40 | PT.IPTN ---
Current Diagnoses Broken internal joint prosthesis, unspecified site, initial encounter (07/26/23) Presence of right artificial shoulder joint (07/26/23) Surgery Performed Operation Date: 07/26/23 07:45 Actual Procedures p Reverse Total Shoulder Arthroplasty - Revision with biceps tenodesis, with allograft(Right) - Talib Aparicio MD Physical Therapy Treatment Note M2 PT-IP Current Condition Start: 07/27/23 09:42 Freq: NEEDED Status: Active Protocol: Document 07/27/23 10:00 AB (Rec: 07/27/23 13:16 AB [id number]) Physical Therapy Current Condition Current Condition Evaluation Date 07/27/23 Treatment Diagnosis s/p revision R TSA reverse; difficulty in walking Onset Date 07/26/23 M3 PT-IP Subjective Start: 07/27/23 09:42 Freq: NEEDED Status: Active Protocol: Document 07/27/23 13:57 TS (Rec: 07/27/23 14:05 TS [id number]) Subjective Physical Therapy Visit Type Type Treatment Note Visit Start Time 13:40 Visit Stop Time 13:58 Number of PMO LEAD Visits 1 Physical Therapy Visit Comments Patient Comments Pt found resting in bed, son in room, pt reports feeling dizzy with HOB elevated, pt is agreeable to PT. M4 PT-IP Mobility and Gait Start: 07/27/23 09:42 Freq: NEEDED Status: Active Protocol: Document 07/27/23 13:57 TS (Rec: 07/27/23 14:05 TS [id number]) PT-Transfer Assessment Comments Mobility Comments BP with HOB elevated 95/35 and 79/49, BP in supine 67/31. Pt is not appropriate for OOB mobility at this time. Son and pt educated in removal of sling and post-op ex. Gait Assessment Comments Gait Comments Unable at this time PT-Balance Assessment Sitting Balance and Reactions Static Sitting Balance Ability Normal Dynamic Sitting Balance Ability Good M5 PT-IP Objective Assessments Start: 07/27/23 09:42 Freq: NEEDED Status: Active Protocol: Document 07/27/23 10:00 AB (Rec: 07/27/23 13:16 AB [id number]) Orientation Orientation/Cognition Level of Alertness Alert Orientation Name Language Function Ability Hard of Hearing Safety Awareness Decreased Safety Awareness Memory Description Short Term Impaired Gross Range of Motion Lower Extremity ROM Assessment Within Functional Limits Strength Lower Extremity Strength Assessment Within Functional Limits Muscle Tone Muscle Tone WNL Yes M6 PT-IP Treatment Start: 07/27/23 09:42 Freq: NEEDED Status: Active Protocol: Document 07/27/23 13:57 TS (Rec: 07/27/23 14:05 TS [id number]) Physical Therapy Treatment Exercises Exercises Elbow Flexion/Extension,Wrist ROM,Hand ROM Education Education Provided Precautions,Weight Bearing Status,Post-Op Packet,Safety Brace Education [place],Patient M7 PT-IP Assessment and Plan Start: 07/27/23 09:42 Freq: NEEDED Status: Active Protocol: Document 07/27/23 13:57 TS (Rec: 07/27/23 14:05 TS [id number]) PT Summary Assessment and Plan Potential Rehabilitation Potential Fair Summary Impairments Pain,ROM,Strength,Balance, Coordination,Sensation,Tone, Cognition,Bed Mobility, Transfers,Gait,Activity Tolerance Progress Towards Goals Slow Progress due to Medical Issues Assessment Summary Rachel is making slow progress with her mobility. She remains hypotensive and is not appropriate for OOB mobility( see vitals above). Pt and son educated on post-ex, precautions and sling management. PT is recommending Home with 24/7 assist and HHPT when medically stable. Goals Bed Mobility Goal Independent Transfer Goal Independent Gait Goal Independent Gait Distance 200 Other Goals up/down 2 steps L rail ascending mod I Days to Meet Goals 5 Precautions Shoulder Precautions Sling,PROM,Internal Rotation to Body,No External Rotation, No Abduction,Forward Flexion to 90 degrees,Pendulums Weight Bearing Status Weight Bearing Status Non-Weight Bearing Allowed Weight Bearing Amount (enter % RUE NWB or #) (%) Recommendations To Nursing Amount of Assist Needed 1 Person Assist Discharge Recommendations PT Discharge Recommendations Home with 24/7 Assist Available,Outpatient PT Transportation Needs at Discharge Private Vehicle
[2023-07-27] MEDS: LACTATED RINGERS 1,000 ML 100 ML IV ×2 (14:00→23:00)
[2023-07-27] MEDS: CALCIUM CARBONATE 500 MG TAB PO ×2 (16:29→19:51)
[2023-07-27] MEDS: lamoTRIgine 100 MG TABLET 25 MG PO (20:03)
[2023-07-27] MEDS: LACTATED RINGERS 500 ML IV (21:55)
[2023-07-28] MEDS: PANTOPRAZOLE DR 20 MG TABLET PO (06:02)
[2023-07-28] MEDS: OXYCODONE IR 5 MG TABLET PO ×3 (06:05→13:55)
[2023-07-28] MEDS: ALBUTEROL 2.5 MG/3 ML NEB (ADULT) INH (07:30)
[2023-07-28] MEDS: GABAPENTIN 100 MG CAPSULE 200 MG PO (09:00)
[2023-07-28] MEDS: lamoTRIgine 100 MG TABLET 200 MG PO (09:00)
[2023-07-28] MEDS: ENOXAPARIN 40 MG/0.4 ML SYRINGE SUBCUT (09:00)
--- NOTE | 2023-07-28 17:47 | PC.NURSE ---
Computer downtime 07/26 1900 to 07/27 1600. See downtime documentation
[2023-07-28 18:27] LABS: Add Manual Diff / Slide Review NO; Basophils Absolute Auto 100 /uL (0-100); Basophils Percent Auto 0.6 % (0-2); Eosinophils Absolute Auto 100 /uL (0-450); Eosinophils Percent Auto 1.1 % (2-4); Hematocrit 31.9 % (36-46); Hemoglobin 10.5 g/dL (12.0-16.0); Lymphocytes Absolute Auto 3100 /uL (1100-4500); Lymphocytes Percent Auto 34.3 % (25-40); Mean Corpuscular HGB Conc 32.7 % (30-36); Mean Corpuscular Hemoglobin 30.3 PG (26-34); Mean Corpuscular Volume 92.6 fL (80-100); Monocytes Absolute Auto 700 /uL (0-900); Monocytes Percent Auto 8.1 % (3-14); Neutrophils Absolute Auto 5000 /uL (1500-7000); Neutrophils Percent Auto 55.9 % (50-75); Platelet Count 337 X10^3/uL (150-400); Red Blood Cell Count 3.45 X10^6/uL (4.0-5.2); Red Cell Distribution Width 13.6 % (11.6-14.8)
== END 2023-07-28 15:49 | disposition home or self-care (01) | DRG 483 ==
PROVIDERS: Physician Assistant; Admitting Provider Orthopaedic Surgery; PCP Nurse Practitioner Family; Referring Provider Orthopaedic Surgery; Visit Provider Orthopaedic Surgery
PROC: 0RPJ0JZ Removal of Synthetic Substitute from Right Shoulder Joint, Open Approach (ICD-10-PCS; principal; 2023-07-26 07:45)
DX: T84.038A Mechanical loosening of other internal prosthetic joint, initial encounter (principal); T84.068A Wear of articular bearing surface of other internal prosthetic joint, initial encounter; M85.811 Other specified disorders of bone density and structure, right shoulder; M65.811 Other synovitis and tenosynovitis, right shoulder; J45.909 Unspecified asthma, uncomplicated; I10 Essential (primary) hypertension; F17.200 Nicotine dependence, unspecified, uncomplicated; F32.A Depression, unspecified; Z96.611 Presence of right artificial shoulder joint
CPT/HCPCS: 36415; 64415; 73020; 73030; 76000; 85014; 85018; 85025; 86850; 86900; 86901; 87070; 87075; 87176; 87205; 94640; 97110; 97162; 97530; C1713; C1776; J0171; J0330; J0690; J1100; J1650; J1885; J2250; J2405; J2704; J3010; J7613

== ENCOUNTER → 2023-11-13 11:50 | Outpatient (CLI) | payer OTHER, SELFPAY ==
[2023-07-26 13:18] VITALS: BMI 37.1
--- NOTE | 2023-11-13 11:51 | DI.CT.S_ITS ---
PROCEDURE: CT UE RT WO CON INDICATIONS: S/P SHOULDER REPLACEMENT TECHNIQUE: Noncontrast 0.75 mm thick sections acquired from the acromioclavicular joint to the inferior scapula, with coronal and sagittal reformatting. COMPARISON: [facility], CR, XR SHOULDER 2+ VIEWS RIGHT, 11/12/2023, 14:36. [facility], CR, XR SHOULDER 2+ VIEWS RIGHT, 09/05/2023, 13:39. [facility], CR, XR SHOULDER 2+ VIEWS RIGHT, 08/06/2023, 13:49. [facility], CR, XR SHOULDER RT 1V, 07/26/2023, 12:34. [facility], CR, XR SHOULDER RT MIN 2V, 07/26/2023, 10:51. [facility], CT, CT UE RT WO CON, 01/23/2023, 9:38. FINDINGS: Image quality: Fair; streak artifact from shoulder arthroplasty limits evaluation. Bones: Status post revised right reverse total shoulder arthroplasty. There is high-grade scapular notching with heterotopic ossification around the inferior glenoid (4/142) along with an obliquely oriented subacute, healing fracture extending from the inferior glenoid in through the scapular body toward the scapular spine (5/183). The fracture planes are visible throughout the fracture extent. Abnormal position of the glenosphere, which lies superior and slightly lateral to the expected position (4/109). The humeral component is intact without hardware complication Joints: Small-moderate glenohumeral joint effusion. Likely status post prior subacromial decompression and distal clavicular excision. Muscles: Diffuse atrophy of the suprascapularis, subscapularis, and infraspinatus. Mild atrophy of the deltoid musculature. Vessels: No aneurysmal dilatation of the visualized vasculature. Aortic arch calcifications. Lymph nodes: No right axillary lymphadenopathy. Other soft tissues: No focal consolidation in the right lung parenchyma IMPRESSION: 1. Slight superolateral subluxation of the glenosphere component of the reverse total shoulder arthroplasty, in the setting of high-grade scapular notching and a periprosthetic fracture through the scapula. 2. Small-moderate glenohumeral joint effusion, likely reactive. Dictated by: Justin Navarro M.D. on 11/13/2023 at 15:10 Approved by: Justin Navarro M.D. on 11/13/2023 at 15:33
== END ==
LOC: CT 11:51
PROVIDERS: PCP Nurse Practitioner Family; Referring Provider Orthopaedic Surgery; Visit Provider Orthopaedic Surgery
DX: T84.028A Dislocation of other internal joint prosthesis, initial encounter (principal); M96.69 Fracture of other bone following insertion of orthopedic implant, joint prosthesis, or bone plate; Z96.611 Presence of right artificial shoulder joint
CPT/HCPCS: 73200

== ENCOUNTER 2023-11-23 06:03 | Inpatient (IN) | payer OTHER, SELFPAY ==
[2023-07-26 13:18] VITALS: BMI 37.1
[2023-11-21 14:30] VITALS: BMI 34.4
[2023-11-23] VITALS (10 sets, daily range): BP systolic 95–122; BP diastolic 62–68; PULSE 59–74; RESP 14–18; TEMP 36.1–36.6; O2SAT 92–98; BMI 34.4
[2023-11-23] MEDS: LACTATED RINGERS 1,000 ML 84 ML IV ×2 (07:10→08:56)
--- NOTE | 2023-11-23 07:51 | PM.PREOP ---
Pre-operative Note Interval Note History & Physical reviewed/Exam performed by Physician: Yes Changes to H&P: No
[2023-11-23] MEDS: CEFAZOLIN 2 GM/100 ML PREMIX 100 ML IV ×2 (08:00→10:57)
[2023-11-23] MEDS: TRANEXAMIC ACID 1,000 MG VIAL 2000 MG INJ (08:10)
--- NOTE | 2023-11-23 08:36 | SUR.OPER ---
Beach chair with [place] shoulder positioner. Lower body on padded OR bed. Head in foam padded head cradle, secured with straps. Non-operative arm secured <90 degrees abduction. Pillow under knees. Safety belt at thigh. Cloth tape over blanket over lower legs.
[2023-11-23] MEDS: BUPIVACAINE 0.25% (PF) 30 ML, EPINEPHrine 0.15 MG INJ (09:13)
[2023-11-23] MEDS: VANCOMYCIN 1,000 MG VIAL 1000 MG TOP (10:40)
--- NOTE | 2023-11-23 11:20 | DI.RAD.S_ITS ---
PROCEDURE: XR SHOULDER RT MIN 2V INDICATIONS: RIGHT SHOULDER REVISION TECHNIQUE: A set of digital acquisition images were obtained, 3 total views of the shoulder were acquired. One is labeled pre and 2 are labeled post. The time frame is approximately 8:22 a.m. Through 11:00 a.m. 11/23/23. COMPARISON: [facility], CR, XR SHOULDER 2+ VIEWS RIGHT, 08/06/2023, 13:49. [facility], CR, XR SHOULDER 2+ VIEWS RIGHT, 11/12/2023, 14:36. [facility], CT, CT UE RT WO CON, 11/13/2023, 11:57. [facility] CR, XR SHOULDER RT 1V, 11/23/2023, 11:38. [facility], XR SHOULDER RT 1V, 07/26/2023, 12:34. [facility], XR SHOULDER RT MIN 2V, 07/26/2023, 10:51. FINDINGS: Bones: Limited preoperative, intraoperative and postoperative visualization shows a previously identified fractured fixation screw on the pre image with adjacent relative lucency along the glenoid [place] bone interface with the scapular body. This presumably represents device loosening in addition to the fractured screw. The intraoperative and postoperative imaging shows a sequence of screw revisions, and finally the placement of the rounded glenoid component of the total shoulder arthroplasty device. Soft tissues: No suspicious soft tissue calcifications. IMPRESSION: Sequence of preoperative, intraoperative, and immediate postoperative digital acquisition imaging from the operating room as discussed above. Subsequent high-resolution postoperative images available for review also obtained 11:38 a.m. Dictated by: Neftali Whitaker M.D. on 11/23/2023 at 13:13 Approved by: Neftali Whitaker M.D. on 11/23/2023 at 13:25
[2023-11-23] MEDS: ALBUTEROL/IPRATROPIUM 3 ML AMPUL INH (11:35)
--- NOTE | 2023-11-23 11:41 | DI.RAD.S_ITS ---
PROCEDURE: XR SHOULDER RT 1V INDICATIONS: POST OP REVISION TECHNIQUE: 1 views of the shoulder were acquired. COMPARISON: [facility], CR, XR SHOULDER RT MIN 2V, 11/23/2023, 8:22. FINDINGS: Bones: Total right shoulder prosthesis in good position. Acetabular component is well seated. Soft tissues: Right lung apex clear without pneumothorax. Postprocedural soft tissue air within normal limits. IMPRESSION: Total right shoulder arthroplasty in good position. Approved by: Darvin Rey M.D. on 11/23/2023 at 12:27
[2023-11-23] MEDS: OXYCODONE IR 5 MG TABLET PO (11:53)
[2023-11-23] MEDS: ACETAMINOPHEN IV 1,000 MG/100 ML VIAL 400 MG IV (11:53)
--- NOTE | 2023-11-23 11:53 | P.OP_ITS ---
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 She is indicated to remove the previous implant, bone graft and placed a new glenosphere for stability and improve shoulder function. Risks and benefits of surgery were discussed again including the risk of infection, damage to internal structures, bleeding, nerve injury, instability, need for revision surgery, blood clots, anesthesia and . No guarantees were made regarding outcomes. Patient expressed understanding and accepted these risks and wished to go forward with surgery and consent was signed. Surgeon: Talib Aparicio Cook Cashier Food Prep: Betzaida Rojas Anesthesia Type: General Operative Notes Findings: Grossly loose glenosphere and base plate, fractured superior screw Closure Type: primary Prosthetic devices, grafts, tissues, transplants, or devices: Tornier Implants Base plate: Half wedge 25 mm Graft: Femoral head allograft, DBM Glenosphere: 36 mm +2 eccentric Humerus: Reunion polyethylene humeral insert diameter 36 thickness 8 mm on a 10 mm thickness humeral cup Estimated Blood Loss (mL): 100 Blood products transfused: none Procedure in detail: Patient was seen in the preoperative holding unit. The correct right shoulder was identified and marked with my initials. Again we discussed the risks and benefits of surgery and they wished to go forward with surgery. The patient was brought back to the operating room and placed supine on the operating table. Smooth endotracheal intubation was performed by anesthesia. All prominences were padded and they were placed into the beach chair position. Intravenous antibiotics were given. The right shoulder was then prepped with the standard sterile preparation and draping. A time-out was then performed in my initials were again identified on the correct shoulder. 1 g of IV tranexamic acid was given. A standard deltopectoral incision was made. Skin flaps were made. Sharp dissection was made along the deltoid, subacromial and subcoracoid space to release adhesions. The conjoined tendon was identified and the axillary nerve was palpated and continuous using the tug test. It was protected throughout the remainder of the case. A brown retractor was placed underneath the deltoid muscle and a darach retractor underneath the conjoint tendon. The subscapularis muscle was noted to be insufficient. The shoulder was then dislocated. The implant was encountered at this time. The rotator cuff was noted to be insufficient. The previous implant tray and poly was then removed with a tuning fork device. There was some proximal humerus bone loss although not severe. Multiple cultures were taken and sent. Attention was then turned to the glenoid. After retracting the humeral head posteriorly a circumferential release was performed of the capsule with protection of the axillary nerve. The previous glenosphere was then removed, it was noted that the superior screw was fractured. More cultures were taken and sent. Thorough debridement of the glenoid was then performed demonstrating significant synovitis throughout as well as bone loss centrally and inferior. After adequate debridement was performed and good visualization of the glenoid was obtained, we began by fashioning a femoral head allograft. Using measurements taken in the glenoid, a graft was made to fit the socket. DBM was used to fill in the cracks and it was provisionally pinned into place. Using a half wedge 25 base plate, it was also pinned through the inferior hole. The central post hole was then drilled followed by a boss drill. The graft was placed on the back of the implant and was screwed into place en-block. The superior anterior and inferior nonlocking holes were then drilled. Turning back to the humerus, thorough debridement around the stem was performed, a new tray was then selected and trialed with a 36+ 8 retentive poly. The arm was taken through range of motion and this was felt to be stable. The trial was then removed and a dilute Betadine wash was then performed with 1 L of sterile saline. The final implant was then impacted into the humerus. The shoulder was then reduced and again brought through range of motion and was felt to be stable. 1 g of vancomycin powder was placed into the wound. The deltopectoral interval was then closed with #2 Ethibond. The skin was closed with 2-0 vicryl and 3-0 Monocryl followed by Aquacel dressing. Patient was awoken from anesthesia and brought back to the postoperative recovery unit without issue. They were placed into a sling. Assisting participation: This operation could not have been safely performed (without compromising the technical results or length of the procedure) without the assistance of a skilled construction project assistant. The construction project assistant was medically necessary for proper positioning, retraction and manipulation of instruments, proper exposure, graft prep, and manipulation of tissue. Complications: none Post-operative Condition: stable Disposition: PACU Plan for aftercare: Sling for 12 weeks. No range of motion for the 1st 6 weeks, gentle passive range of motion only for the next 6 weeks, active range of motion allowed for the next 6 weeks. No lifting more than 3 lb until the 18 week millie
== END 2023-11-23 13:01 | disposition home or self-care (01) | DRG 483 ==
PROVIDERS: Admitting Provider Orthopaedic Surgery; PCP Nurse Practitioner Family; Referring Provider Orthopaedic Surgery; Visit Provider Orthopaedic Surgery
PROC: 0RPJ0JZ Removal of Synthetic Substitute from Right Shoulder Joint, Open Approach (ICD-10-PCS; principal; 2023-11-23 07:45)
DX: T84.018A Broken internal joint prosthesis, other site, initial encounter (principal); T84.038A Mechanical loosening of other internal prosthetic joint, initial encounter; Z96.611 Presence of right artificial shoulder joint
CPT/HCPCS: 73020; 73030; 76000; 87070; 87075; 87176; 87205; C1776; J0136; J0171; J0330; J0690; J1100; J1171; J2250; J2405; J2704; J3010